=== PATIENT | female | born 1970 | race Caucasian/White ===

== ENCOUNTER → 2023-12-29 08:52 | Outpatient (REF) | payer OTHER, SELFPAY | LOC: HWWDC 08:52 | PROVIDERS: ATTENDING PHYSICIAN Obstetrics & Gynecology; FAMILY PHYSICIAN Family Medicine | DX: Z12.31 Encounter for screening mammogram for malignant neoplasm of breast (principal) | CPT/HCPCS: 77063; 77067 ==

== ENCOUNTER 2024-10-12 17:29 | Emergency (ER) | payer OTHER, SELFPAY ==
--- NOTE | 2024-10-12 18:10 | ED.GENMED ---
History of Present Illness
General
Chief Complaint: Skin Surface Trauma
Source: patient
Exam Limitations: none
Time Seen by Provider: 10/12/24 17:39
History of Present Illness
History of Present Illness:
Patient cut her right fifth digit on a kitchen utensil. Avulsion. Continues to bleed. Last tetanus over 5.
Phy Exam
Physical Exam
Physical Exam:
General: Nontoxic appearing in no distress
Skin: Warm and dry, no rash
Neuro: Alert, nontoxic, grossly nonfocal
Psychiatric: Good eye contact and appropriate
Musculoskeletal: 1 cm x 6 mm avulsion to the lateral fifth finger. Continues to ooze blood. Motor or sensory neurovascular intact
Course
Orders/Labs/Results
Orders:
Orders
10/12/24 18:14
Tetanus/Diphth/Acelpertussis [Adacel] 0.5 ml IM .ONCE ONE
Vital Signs
Initial and Last Documented VS:
Initial Vital Signs
Temp Resp Pulse Ox
97.8 F 20 98
10/12/24 17:31 10/12/24 17:31 10/12/24 17:31
Last Documented Vital Signs
Temp Resp Pulse Ox
97.8 F 20 98
10/12/24 17:31 10/12/24 17:31 10/12/24 17:31
Procedures
Laceration Closure
Right Fifth Finger:
Status of Wound: clean
Size of Wound in cm: 1
Description of Wound Edges: other (Avulsion)
Wound exploration: explored to base- no FB
Type of Closure: Dermabond-skin glue
*Pulse Oximetry
Patient hypoxic: no
*Critical Care Note
Total Time (30-74mins, 75-104mins- exclusive of procedures): Not Applicable
Update Note
Update Note:
Initially tried Dermabond however would ooze through the Dermabond. Sterilely glued. Recheck no bleeding.
ED Attending Note
-
Portions of this chart may have been created with voice recognition software.� Occasional wrong word or��sound alike� substitutions may have occurred due to the inherent limitations of voice recognition software.
Discharge Plan
Departure
Date of Disposition: 10/12/24
Time of Disposition: 18:11
Patient with high blood pressure during this ER visit?: No
Instructions: Laceration Repair With Glue (DC), Wound Care (DC)
Activity Restrictions/Additional Instructions:
Recheck with any signs of infection, recurrent bleeding, swelling redness etc.
Interventions
Interventions:
*Risk Screen - Suicide Last Done: 10/12/24 17:32
*General Assessment Last Done: 10/12/24 17:32
*Neglect/Abuse Screening Last Done: 10/12/24 17:32
ED-Skin Assessment Last Done: 10/12/24 17:49
Discharge Date and Time
Print Language: [place]IZ[place]
[2024-10-12] MEDS: ADACEL 0.5 ML IM (18:21)
[2024-10-12 18:29] VITALS: BP 106/74
== END 2024-10-12 18:31 | disposition home or self-care (01) ==
LOC: EMR 17:29
PROVIDERS: EMERGENCY PHYSICIAN Emergency Medicine; FAMILY PHYSICIAN Family Medicine
DX: S61.216A Laceration without foreign body of right little finger without damage to nail, initial encounter (principal); W45.8XXA Other foreign body or object entering through skin, initial encounter; Z23 Encounter for immunization
CPT/HCPCS: 99283; 90471; 90715

== ENCOUNTER 2024-11-08 06:24 | Day surgery (SDC) | payer OTHER, SELFPAY | END 2024-11-08 14:08 | disposition home or self-care (01) | LOC: GI 06:24 | PROVIDERS: ATTENDING PHYSICIAN Internal Medicine; FAMILY PHYSICIAN Family Medicine | DX: D12.2 Benign neoplasm of ascending colon (principal); Q43.8 Other specified congenital malformations of intestine; K64.9 Unspecified hemorrhoids; K29.70 Gastritis, unspecified, without bleeding; K44.9 Diaphragmatic hernia without obstruction or gangrene; K31.89 Other diseases of stomach and duodenum; D50.9 Iron deficiency anemia, unspecified; N92.0 Excessive and frequent menstruation with regular cycle; Z80.0 Family history of malignant neoplasm of digestive organs; Z83.79 Family history of other diseases of the digestive system | CPT/HCPCS: 45385; 43239; 88305; 88342 ==

== ENCOUNTER → 2025-04-01 08:05 | Outpatient (REF) | payer OTHER, SELFPAY | LOC: HWWDC 08:05 | PROVIDERS: ATTENDING PHYSICIAN Obstetrics & Gynecology; FAMILY PHYSICIAN Family Medicine | DX: Z12.31 Encounter for screening mammogram for malignant neoplasm of breast (principal) | CPT/HCPCS: 77063; 77067 ==